=== PATIENT | male | born 1965 | race Hispanic/Latino ===

== ENCOUNTER 2016-06-12 08:43 | Outpatient (CLI) | payer MEDICARE ==
--- NOTE | 2016-06-12 11:10 | Ultrasound Report ---
Abdominal series: Prior trauma with chronic abdominal pain. An AP view of the chest is unremarkable. The abdominal gas and soft tissue pattern appears normal. No free air noted. No abnormal calcifications. Pedicle screws between L5 and S1 bilaterally. Mild spondylosis of several vertebral levels. Suspicion of narrowing at multiple levels. No prior study for comparison. Impression: No acute findings. Postsurgical and degenerative lumbar spine changes. Complete abdominal ultrasound: Prior trauma with chronic abdominal pain. GERD. The liver is inhomogeneous and diminished through transmission. No focal findings. The spleen measures 12.3 cm in greatest dimension but does not appear to have increased overall volume. The pancreas is echogenic but not otherwise remarkable. The gallbladder wall is thickened measuring 4.2 mm. No calculus identified. The diameter of the CBD is 5.3 mm. The right renal length is 12.5 cm and the left is 12.3 cm. Both kidneys appeared echogenically unremarkable. The transverse diameter of the proximal abdominal aorta is 2 cm. Impressions: 1. Hepatic findings consistent with fatty change. 2. Fatty pancreatic changes. 3. Nonspecific gallbladder wall thickening. No other evidence of inflammatory change.
--- NOTE | 2016-06-12 14:13 | Nuclear Medicine Report ---
NUCLEAR MEDICINE GASTRIC EMPTYING SCAN History: Gastroesophageal reflux disease, decreased appetite. Findings: Anterior abdominal imaging was obtained for 90 minutes following 1 mCi of technetium 99m sulfur colloid in oatmeal. There is prompt emptying of the gastric cavity. Half life for gastric emptying measures 36 minutes. There is no scintigraphic evidence for reflux disease. Impression: Normal gastric emptying.
== END 2016-06-12 08:44 | disposition home or self-care (01) ==
LOC: US 08:43
PROVIDERS: ATTEND Internal Medicine Gastroenterology
DX: K21.9 Gastro-esophageal reflux disease without esophagitis (principal); R14.0 Abdominal distension (gaseous); R68.81 Early satiety; M47.896 Other spondylosis, lumbar region; Z83.71 Family history of colonic polyps
CPT/HCPCS: 74022; 76700; 78264; A9541

== ENCOUNTER 2021-02-28 23:47 | Emergency (ER) | payer MEDICARE ==
--- NOTE | 2021-03-01 00:32 | Emergency Department Report ---
ED General Adult HPI - General Chief complaint: Overdose Stated complaint: Possible Overdose/AMS Time Seen by Provider: 03/01/21 00:25 Source: patient, EMS Mode of arrival: Wheelchair Limitations: Altered Mental Status - History of Present Illness Initial comments: Patient is a 55-year-old male who was brought in by [facility] for potential over dose. Patient states that he got his medicines mixed up and took amitriptyline. He denies having any suicidal ideation he states he only took 1 pill. He is just kind and drowsy. But he awakens to verbal stimulation. Patient denies having nausea or vomiting any shortness of breath any fevers or chills or any chest pain. Severity scale (0 -10): 0 - Related Data Allergies Allergy/AdvReac Type Severity Reaction Status Date / Time HYDROXYZINE Allergy CRAMPS Uncoded 06/12/16 08:49 MUSCLE,NEUROLOGICAL INJURY ED Review of Systems ROS: Stated complaint: Possible Overdose/AMS Other details as noted in HPI Constitutional: denies: chills, fever Eyes: denies: eye pain, eye discharge, vision change ENT: denies: ear pain, throat pain Respiratory: denies: cough, shortness of breath, wheezing Cardiovascular: denies: chest pain, palpitations Endocrine: no symptoms reported Gastrointestinal: denies: abdominal pain, nausea, diarrhea Genitourinary: denies: urgency, dysuria Musculoskeletal: denies: back pain, joint swelling, arthralgia Skin: denies: rash, lesions Neurological: denies: headache, weakness, paresthesias Psychiatric: denies: anxiety, depression Hematological/Lymphatic: denies: easy bleeding, easy bruising ED Physical Exam - General Limitations: Altered Mental Status General appearance: alert, in no apparent distress - Head Head exam: Present: atraumatic, normocephalic - Eye Eye exam: Present: normal appearance - ENT ENT exam: Present: mucous membranes moist - Neck Neck exam: Present: normal inspection - Respiratory Respiratory exam: Present: normal lung sounds bilaterally. Absent: respiratory distress - Cardiovascular Cardiovascular Exam: Present: regular rate, normal rhythm. Absent: systolic murmur, diastolic murmur, rubs, gallop - GI/Abdominal GI/Abdominal exam: Present: soft, normal bowel sounds - Rectal Rectal exam: Present: deferred - Extremities Exam Extremities exam: Present: normal inspection - Back Exam Back exam: Present: normal inspection - Neurological Exam Neurological exam: Present: alert, oriented X3 - Psychiatric Psychiatric exam: Present: normal affect, normal mood - Skin Skin exam: Present: warm, dry, intact, normal color. Absent: rash ED Course Vital Signs 02/28/21 03/01/21 03/01/21 23:59 00:30 00:45 Temperature 99.0 F Pulse Rate 89 84 84 Respiratory 18 12 14 Rate Blood Pressure 102/62 109/74 Blood Pressure 107/77 [Left] O2 Sat by Pulse 96 93 94 Oximetry 03/01/21 03/01/21 03/01/21 00:50 01:00 01:15 Temperature Pulse Rate 77 77 Respiratory 13 12 12 Rate Blood Pressure 105/55 109/52 Blood Pressure [Left] O2 Sat by Pulse 95 95 95 Oximetry 03/01/21 03/01/21 01:31 01:45 Temperature Pulse Rate 72 76 Respiratory 14 12 Rate Blood Pressure 102/54 100/61 Blood Pressure [Left] O2 Sat by Pulse 94 96 Oximetry ED Medical Decision Making - Lab Data Result diagrams: 03/01/21 01:32 03/01/21 01:32 Lab Results 03/01/21 03/01/21 Range/Units 01:32 01:32 WBC 5.5 (4.5-11.0) K/mm3 RBC 5.20 H (3.65-5.03) M/mm3 Hgb 15.5 H (11.8-15.2) gm/dl Hct 49.2 H (35.5-45.6) % MCV 95 H (84-94) fl MCH 30 (28-32) pg MCHC 32 (32-34) % RDW 14.2 (13.2-15.2) % Plt Count 153 (140-440) K/mm3 Lymph % (Auto) 25.0 (13.4-35.0) % Harding % (Auto) 10.7 H (0.0-7.3) % Eos % (Auto) 4.2 (0.0-4.3) % Baso % (Auto) 0.9 (0.0-1.8) % Lymph # (Auto) 1.4 (1.2-5.4) K/mm3 Harding # (Auto) 0.6 (0.0-0.8) K/mm3 Eos # (Auto) 0.2 (0.0-0.4) K/mm3 Baso # (Auto) 0.0 (0.0-0.1) K/mm3 Seg Neutrophils % 59.2 (40.0-70.0) % Seg Neutrophils # 3.3 (1.8-7.7) K/mm3 Sodium 137 (137-145) mmol/L Potassium 4.2 (3.6-5.0) mmol/L Chloride 103.9 (98-107) mmol/L Carbon Dioxide 21 L (22-30) mmol/L Anion Gap 16 mmol/L BUN 8 L (9-20) mg/dL Creatinine 1.2 (0.8-1.3) mg/dL Estimated GFR > 60 ml/min BUN/Creatinine Ratio 7 % Glucose 98 (75-100) mg/dL Calcium 8.3 L (8.4-10.2) mg/dL - Medical Decision Making Cdx: Amytriptilline intoxication ddx: opioid overdose, antihistamine intoxication I will be blood work and will re-evaluate the patient. The blood work is unremarkalbe i will discharge the patient home Critical care attestation.: If time is entered above; I have spent that time in minutes in the direct care of this critically ill patient, excluding procedure time. ED Disposition Clinical Impression: Drowsiness Tricyclic antidepressant poisoning Qualifiers: Encounter type: initial encounter Injury intent: accidental or unintentional Qualified Code(s): T43.011A - Poisoning by tricyclic antidepressants, accidental (unintentional), initial encounter Disposition: 01 HOME / SELF CARE / HOMELESS Is pt being admited?: No Does the pt Need Aspirin: No Condition: Stable Instructions: Accidental Drug Poisoning, Adult
[2021-03-01 02:07] LABS: Basophils % (Auto) 0.9 % (0.0-1.8); Eosinophils # (Auto) 0.2 K/mm3 (0.0-0.4); Eosinophils % (Auto) 4.2 % (0.0-4.3); Hematocrit 49.2 % (35.5-45.6); Hemoglobin 15.5 gm/dl (11.8-15.2); Lymphocytes # (Auto) 1.4 K/mm3 (1.2-5.4); Mean Corpuscular HGB Conc 32 % (32-34); Mean Corpuscular Volume 95 fl (84-94); Monocytes # (Auto) 0.6 K/mm3 (0.0-0.8); Monocytes % (Auto) 10.7 % (0.0-7.3); Platelet Count 153 K/mm3 (140-440); Red Cell Distribution Width 14.2 % (13.2-15.2)
[2021-03-01 02:22] LABS: BUN/Creatinine Ratio 7; Blood Urea Nitrogen 8 mg/dL (9-20); Calcium 8.3 mg/dL (8.4-10.2); Hemolysis Index 4
[2021-03-01 04:59] VITALS: BP 114/53
== END 2021-03-01 03:15 | disposition home or self-care (01) ==
LOC: ED 23:47
DX: T43.011A Poisoning by tricyclic antidepressants, accidental (unintentional), initial encounter (principal); Y92.89 Other specified places as the place of occurrence of the external cause; Z88.8 Allergy status to other drugs, medicaments and biological substances
CPT/HCPCS: 36415; 80048; 85025; 99283